=== PATIENT | female | born 1990 | race Caucasian/White ===

== ENCOUNTER 2025-03-08 12:15 | Emergency (ER) | payer BC | END 2025-03-08 12:55 | disposition home or self-care (01) | LOC: EEVIPCON 12:15 → ERS 12:15 | DX: S60.041A Contusion of right ring finger without damage to nail, initial encounter (principal); W54.1XXA Struck by dog, initial encounter | CPT/HCPCS: 99283 ==

== ENCOUNTER 2025-03-12 13:48 | Emergency (ER) | payer BC | END 2025-03-12 14:38 | disposition home or self-care (01) | LOC: ERS 13:48 | DX: S60.041A Contusion of right ring finger without damage to nail, initial encounter (principal); X58.XXXA Exposure to other specified factors, initial encounter; Y93.01 Activity, walking, marching and hiking | CPT/HCPCS: 99283 ==